=== PATIENT | male | born 1995 | race Caucasian/White ===

== ENCOUNTER 2025-04-22 16:02 | Emergency (ER) | payer OTHER, SELFPAY ==
--- NOTE | ~2025-04-22 | CT_ITS ---
CT ABDOMEN AND PELVIS WITHOUT CONTRAST Clinical History: r/o kidney stone Comparison: None Technique: Unenhanced axial images lung bases to symphysis pubis Coronal, sagittal reformats CT images acquired with automatic exposure control for dose reduction DLP: [place]ousand 695 mGy-cm Findings: Without intravenous contrast, sensitivity for detecting visceral parenchymal abnormalities decreased. Lung bases: Clear. Visualized heart and pericardium: Unremarkable. Liver: Unremarkable. Gallbladder: Unremarkable. Spleen: Unremarkable. Pancreas: Unremarkable. Adrenal glands: Unremarkable. Kidneys: Right kidney- No hydronephrosis. No renal stones. Left kidney- Hydronephrosis. No renal stones. 2 mm stone distal ureter. Perinephric stranding. Distal esophagus/stomach: Unremarkable. Small bowel loops: Normal caliber and wall thickness. Colon: Normal caliber and wall thickness. Normal RLQ appendix. Nodes: No enlarged nodes. Peritoneum: No ascites. No free intraperitoneal air. Urinary bladder: Unremarkable. Prostate: Unremarkable. Bones: No acute bony abnormality. Soft tissues: Unremarkable. Unopacified abdominal aorta: No aneurysmal dilatation. IMPRESSION: 1. Hydronephrosis left kidney from 2 mm distal ureteral stone. Reviewed, dictated and finalized at location R.
[2025-04-22 16:17] VITALS: BP 167/93; PULSE 87; RESP 18; TEMP 36.6; O2SAT 97
[2025-04-22 21:13] VITALS: BP 153/105; PULSE 106; RESP 18; TEMP 36.4; O2SAT 96
[2025-04-22 22:34] VITALS: BP 140/90; PULSE 98; RESP 23; O2SAT 97
[2025-04-22 22:46] VITALS: BP 141/95; PULSE 97; O2SAT 96
--- OUTSIDE RECORDS SUMMARY | 2025-04-22 22:54 | XMS_ITS | Clinical Summary ---
Author Organization [facility] Address [address] [place] [address] Phone Care Team Providers Care Deckhand Fishing Vessel Name Role Phone Unavailable Primary Care Provider Unavailabl e Social History Tobacco Use Types Packs/Day Years Used Date Smoking Tobacco: Never Assessed Sex and Gender Information Value Date Recorded Sex Assigned at Not on file Legal Sex Male 10:52 PM EDT Gender Identity Not on file Sexual Orientation Not on file Plan of Treatment Health Maintenance Due Date Last Done Comments Hepatitis C Screening 1995 Depression Screening 2007 HIV Screening 2010 Annual Physical 2013 BMI: Adult 2013 DTaP,Tdap,and Td Vaccines (1 - Tdap) 2016 HPV Vaccine (1 - 3-dose SCDM series) 2022 COVID-19 Vaccine (2 - 2024-2 6 season) 2025 04/03/2021 Influenza Vaccine (#1) 2025 Zoster Vaccine (1 of 2) 2045 Meningococcal ACWY Vaccine Completed 04/04/2013 HIB Vaccine Aged Out No longer eligi ble based on patient's age to complete this topic Hepatitis A Vaccine Aged Out No longe r eligible based on patient's age to complete this topic IPV Vaccine Aged Out No longer eligi ble based on patient's age to complete this topic Meningococcal B Vaccine Aged Out No l onger eligible based on patient's age to complete this topic Pneumococcal Vaccine: Pediat rics (0 to 5 Years) and At-Risk Patients (6 to 49 Years) Aged Out No longer eligi ble based on patient's age to complete this topic RSV Vaccine age 0-20 Months Aged Out No longer eligible based on patient's age to complete this topic Insurance [employer]
--- OUTSIDE RECORDS SUMMARY | 2025-04-22 22:54 | XMS_ITS | Clinical Summary ---
Author Organization [facility] Address [address] [facility] [address] Care Team Providers Care Propagation Manager Name Role Phone Unavailable Primary Care Provider Unavailabl e Social History Tobacco Use Types Packs/Day Years Used Date Smoking Tobacco: Never Assessed Sex and Gender Information Value Date Recorded Sex Assigned at Not on file Legal Sex Male 10:52 PM EST Gender Identity Not on file Sexual Orientation Not on file Last Filed Vital Signs Vital Sign Reading Time Taken Comments Blood Pressure 121/69 08/03/2016 11:35 AM EST Pulse - - Temperature - - Respiratory Rate - - Oxygen Saturation - - Inhaled Oxygen Concentration - - Weight 142 kg (312 lb) 08/03/2016 11:35 AM EST Height 182.9 cm (6') 08/03/2016 11:35 AM EST Body Mass Index 42.31 08/03/2016 11:35 AM EST Plan of Treatment Health Maintenance Due Date Last Done Comments HIV Screen 1995 Hepatitis C Screening 1995 Preventative Care Visit (18- 39 y.o.) 1995 Tetanus 1995 Depression Screen* 2007 HPV Vaccine (1 - Male 3-dose series) 2010 Social Drivers of Health 2013 Hepatitis B Vaccine (1 of 3 - 19+ 3-dose series) 2014 Influenza Vaccine* (#1) 02/09/2025 COVID-19 Vaccine ( - 2023-2 5 season) 2025 RSV Vaccine (1 - 1-dose 75+ series) 2070 Pneumococcal Vaccine Aged Out No long er eligible based on patient's age to complete this topic Insurance [facility]
--- OUTSIDE RECORDS SUMMARY | 2025-04-22 22:54 | XMS_ITS | Encounter Summary ---
Author Organization [facility] Address [address] [place] [address] Phone Care Team Providers Care Electrical Equipment Technician Name Role Phone Unavailable Primary Care Provider Unavailabl e Encounter Details Date Type Department Care Team (Latest Contact Info) Description 04/21/2023 Transcribe Orders [facility] Central Scheduling [address] [place] [address] Macy Urbina [address] [place] [address] Obstructive sleep apnea (adult) (pediatric) (Primary Dx) Social History Tobacco Use Types Packs/Day Years Used Date Smoking Tobacco: Never Assessed Sex and Gender Information Value Date Recorded Sex Assigned at Not on file Legal Sex Male 10:52 PM EDT Gender Identity Not on file Sexual Orientation Not on file documented as of this encounter Plan of Treatment Not on file documented as of this encounter Visit Diagnoses Diagnosis Obstructive sleep apnea (adult) (pediatric)- Primary documented in this encounter
--- NOTE | 2025-04-22 23:00 | ED_ITS ---
HPI - Back Pain/Injury General Chief Complaint: Back Pain/Injury Stated Complaint: L FLANK PAIN,N/V Time Seen by Provider: 04/22/25 22:30 History of Present Illness HPI Narrative: Patient is a 29-year-old male who presents to the ER with left flank pain that started last night around midnight. He reports the pain has been intermittent since then but has been so bad at times it makes him vomit. Patient denies any history of kidney stones. He denies any urinary symptoms, recent fevers, or noticeable blood in his urine. Patient sources a medical history of asthma and HRT (male to female). He denies any injury to his back. Pt also endorses bilateral ear pain. Related Data Allergies Allergy/AdvReac Type Severity Reaction Status Date / Time peanut Allergy Severe Anaphylaxis Verified 04/22/25 16:04 Review of Systems 2 Review of Systems: All systems reviewed & are unremarkable except as noted in HPI and below Exam 2 Narrative: GENERAL: Well appearing, obese, non-toxic, in no acute distress. HEAD: Normocephalic, atraumatic. L otitis media, tympanic membrane intact, R ear no acute abnormalities. NECK: Supple. No adenopathy, no masses. RESPIRATORY: Airway patent, respirations nonlabored. Clear to auscultation bilaterally, no rales, rhonchi, wheezing. CARDIOVASCULAR: Tachycardia without murmurs, rubs, or gallops. Peripheral pulses 2+ and equal bilaterally. Positive CVA tenderness left flank ABDOMINAL: Soft, nontender, mildly distended, no hepatosplenomegaly. Normoactive BS. MUSCULOSKELETAL: Moves all extremities. Strength/ROM intact without gross deformities. SKIN: Warm, dry, normal color. No rashes. NEURO: A&O X3. Speech clear. Cranial nerves II-XII intact. No ataxic movements. PSYCHIATRIC: Appropriate mood and affect. Normal interaction. Course Vital Signs Vital signs: Vital Signs Temperature 36.6 C 04/22/25 16:17 Pulse Rate 87 04/22/25 16:17 Respiratory Rate 18 04/22/25 16:17 Blood Pressure 167/93 H 04/22/25 16:17 Pulse Oximetry 97 04/22/25 16:17 Temperature 36.4 C 04/22/25 21:13 Pulse Rate 97 04/22/25 22:46 Respiratory Rate 23 H 04/22/25 22:34 Blood Pressure 141/95 H 04/22/25 22:46 Pulse Oximetry 96 04/22/25 22:46 MDM - Back Pain/Injury MDM Narrative Medical decision making narrative: Patient is a 29-year-old male who presents to the ER with left flank pain that started last night around midnight. He reports the pain has been intermittent since then but has been so bad at times it makes him vomit. Patient denies any history of kidney stones. He denies any urinary symptoms, recent fevers, or noticeable blood in his urine. Patient sources a medical history of asthma and HRT (male to female). He denies any injury to his back. Labs Ordered: CBC, CMP, UA Imaging Ordered: CT abdomen pelvis Medications Ordered: 1 L normal saline IV bolus, Zofran 4 mg IV Results: Patient's CBC indicates white blood cell count 12.9, hemoglobin of 12.5, hematocrit of 38.4%. His chemistry was unremarkable. Patient's urinalysis indicates 2+ ketones, 3+ blood, 1+ leukocytes, 51-100 rbcs, 21-50 wbcs Diagnosis: Kidney stone Consults: urology (outpatient) Patient Education/Shared MDM: Results of lab work and imaging shared with patient. He will be given a dose Toradol to help decrease inflammation and pain. Patient will also be given dose of Flomax here in the ER and his 1st dose of oral antibiotics to treat his UTI and otitis media. Patient strongly advised to maintain hydration status upon discharge and follow-up with Urology in the next 2-3 days. He will be discharged home with a prescription for Augmentin, Flomax, and [place]. Patient advised he could take ibuprofen 800mg TID, in addition, for pain control. Strict return precautions provided. Patient verbalized understanding and is in agreement with plan. Vital signs stable at time of discharge. All questions answered. Differential Diagnosis Differential diagnosis: Likely renal colic, pyelonephritis and other (Urinary tract infection, hydronephrosis, otitis media) Lab Data Attestation: I reviewed the patient's lab results. 04/22/25 23:17 04/22/25 23:17 Labs: Lab Results 04/22/25 Range/Units 23:17 WBC 12.9 H (4.5-10.0) K/mm3 RBC 4.89 (4.6-6.20) M/mm3 Hgb 12.5 L (14.0-18.0) g/dL Hct 38.4 L (42.0-52.0) % MCV 78.5 L (80-100) fl MCH 25.6 L (26-34) pg MCHC 32.6 (32-36) g/dl RDW 14.3 (11.5-14.5) % Plt Count 359 (150-375) k/mm3 MPV 8.9 (7.4-10.4) fl Immature Gran % (Auto) 0.2 (0-0.5) % Neut % (Auto) 76.9 H (45.5-73.1) % Lymph % (Auto) 13.0 L (18.3-44.2) % Larue % (Auto) 8.8 H (2.6-8.5) % Eos % (Auto) 0.6 (0-4.4) % Baso % (Auto) 0.5 (0.2-1.2) % Lymph # (Auto) 1.67 (0.9-3.2) K/mm3 Larue # (Auto) 1.1 H (0.1-0.6) K/mm3 Eos # (Auto) 0.1 (0-0.3) K/mm3 Baso # (Auto) 0.1 (0.0-0.1) K/mm3 Abs Immat Gran (auto) 0.03 (0.00-0.031) K/mm3 Absolute Neuts (auto) 9.9 H (1.3-6.7) K/mm3 Absolute Nucleated RBC 0.000 (0.0-0.012) K/mm3 Nucleated RBC % 0.0 (0.0-0.2) % Sodium 137 (137-145) mmol/L Potassium 4.0 (3.4-5.0) mmol/L Chloride 105 (98-107) mmol/L Carbon Dioxide 21 L (22-30) mmol/L Anion Gap 11 (4-12) mmol/L BUN 17 (9-20) mg/dL Creatinine 1.23 (0.7-1.3) mg/dL Estim Creat Clear Calc 135 ml/min Estimated GFR > 60 (59 - ) Glucose 107 (65-110) mg/dL Calcium 9.1 (8.4-10.2) mg/dL Total Bilirubin 0.6 (0.2-1.3) mg/dL AST 36 (17-59) U/L ALT 39 (6-50) U/L Alkaline Phosphatase 95 (38-126) U/L Total Protein 8.5 H (6.3-8.2) g/dL Albumin 4.2 (3.5-5.1) g/dL Urine Color Yellow (Yellow) Urine Appearance Cloudy H (Clear) Urine pH 6.0 (5.0-9.0) Ur Specific [place] 1.026 (1.001-1.035) Urine Protein Trace (Negative) mg/dL Urine Glucose (UA) Negative (Negative) mg/dL Urine Ketones 2+ H (Negative) mg/dL Ur Blood (Man) 3+ H (Negative) Urine Nitrate Negative (Negative) Urine Bilirubin Negative (Negative) Urine Urobilinogen 1.0 (<2.0) mg/dL Leukocyte Esterase Rfl 1+ H (Negative) LEFTY/UL Urine RBC 51-100 H (0-2) /hpf Urine WBC 21-50 H (0-3) /hpf Ur Squamous Epith Cells Few (Few) /hpf Urine Bacteria None seen /hpf Urine Casts 0-2 Imaging Data Attestation: I personally reviewed and interpreted this imaging study as follows: Radiologist's impression: Patient's CT scan indicates mild left hydroureteronephrosis secondary to 2 mm stone in the UVJ. Discharge Plan Discharge Clinical Impression: Kidney stone on left side, Urinary tract infection, Hydronephrosis Patient Disposition: Home Condition: Stable Instructions: Antibiotic Form, Kidney Stones (ED), Urinary Tract Infection in Men (ED) Additional Instructions: Please return to the ER with any worsening symptoms. Follow-up with urology in the next 2-3 days for re-evaluation. You may also call [phone] in the [place] area. Take all medications as prescribed, including regularly scheduled medications. You may take Ibuprofen 800mg PO for pain control. Please complete your full dose of antibiotics. Take narcotic pain medication sparingly. Please remember to drink lots of water. Patient Language: Hungarian Prescriptions: New tamsulosin [Flomax] 0.4 mg capsule 0.4 mg PO DAILY Qty: 10 0RF hydrocodone-acetaminophen 5-325 mg tablet 1 tablet PO Q6H PRN (Reason: pain) Qty: 14 0RF amoxicillin-pot clavulanate 875-125 mg tablet 1 tablet PO Q12H Qty: 20 0RF Follow-up/Referrals: Mata Cox MD [Physician, Urology] Referral Note: urology PHYSICIAN,MAGNETIC TESTING TECHNICIAN [Primary Care Provider, Internal Medicine] Stand Alone Forms: Work/School Release IP Time of Disposition: 01:15
[2025-04-22] MEDS: ONDANSETRON INJ 4 MG/2 ML VIAL IV PUSH (23:20)
[2025-04-22] MEDS: SODIUM CHLORIDE 0.9% IV 1,000 ML 999 ML IV CONT (23:20)
[2025-04-22 23:29] LABS: Hematocrit 38.4 % (42.0-52.0); Hemoglobin 12.5 g/dL (14.0-18.0); Immature Granulocyte Percent A 0.2 % (0-0.5); Lymphocytes Absolute Auto 1.67 K/mm3 (0.9-3.2); Mean Corpuscular HGB Conc 32.6 g/dl (32-36); Mean Corpuscular Hemoglobin 25.6 pg (26-34); Mean Corpuscular Volume 78.5 fl (80-100); Nucleated Red Blood Cells Absolute Auto 0.000 K/mm3 (0.0-0.012); Nucleated Red Blood Cells Perc 0.0 % (0.0-0.2); Platelet Count Result 359 k/mm3 (150-375); Red Blood Count 4.89 M/mm3 (4.6-6.20); White Blood Count 12.9 K/mm3 (4.5-10.0)
[2025-04-22 23:41] LABS: Alanine Aminotransferase 39 U/L (6-50); Albumin Level 4.2 g/dL (3.5-5.1); Alkaline Phosphatase 95 U/L (38-126); Anion Gap 11 mmol/L (4-12); Aspartate Amino Transferase 36 U/L (17-59); Bilirubin,Total 0.6 mg/dL (0.2-1.3); Blood Urea Nitrogen 17 mg/dL (9-20); Calcium 9.1 mg/dL (8.4-10.2); Carbon Dioxide 21 mmol/L (22-30); Chloride 105 mmol/L (98-107); Estimated CRCL calculation 135 ml/min; Estimated Glomerular Filt Rate > 60; Glucose 107 mg/dL (65-110); Potassium 4.0 mmol/L (3.4-5.0); Sodium 137 mmol/L (137-145); Total Protein 8.5 g/dL (6.3-8.2)
[2025-04-22 23:42] LABS: Add Urine Microscopic? YES; Appearance Urine Cloudy (Clear); Glucose Urine UA Negative (Negative); Leukocyte Esterase Ur 1+ LEU/UL (Negative); Nitrate Urine Negative (Negative); Non Pathogenic Casts 0-2; Specific Grav Ur 1.026 (1.001-1.035)
[2025-04-23] MEDS: KETOROLAC 15 MG/ML VIAL (*BKC) IV PUSH (01:22)
[2025-04-23] MEDS: TAMSULOSIN HCL 0.4 MG CAPSULE PO (01:23)
[2025-04-23 01:43] VITALS: BP 143/83; PULSE 100; RESP 24; O2SAT 94
== END 2025-04-23 01:47 | disposition home or self-care (01) ==
PROVIDERS: Emergency Provider Registered Nurse
DX: N39.0 Urinary tract infection, site not specified (principal); N13.2 Hydronephrosis with renal and ureteral calculous obstruction; J45.909 Unspecified asthma, uncomplicated; F64.0 Transsexualism; Z79.890 Hormone replacement therapy
CPT/HCPCS: 36415; 74176; 80053; 81001; 85025; 87086; 96361; 96374; 99284; A9270; J1885; J2405; J7030